=== PATIENT | female | born 1980 | race Caucasian/White ===

== ENCOUNTER 2021-06-21 11:23 | Emergency (ER) | payer OTHER, SELFPAY ==
--- NOTE | ~2021-06-21 | XR_ITS ---
EXAMINATION: XR knee RT 3V EXAM DATE: 06/21/2021 11:47 INDICATION: Injured right knee pushing cart at work, posterior. TECHNIQUE: Three projections of the right knee. There is no prior study for comparison. FINDINGS: No evidence osteochondral defect or joint body in the right knee joint. There are no acut e fractures or dislocations identified. There is no subcutaneous gas. There is small joint effusion . There are no radiopaque foreign bodies. IMPRESSION: 1. XR knee RT 3V exam without acute osseous findings. 2. Small joint effusion. Reviewed, dictated and finalized at location B. PROGRAMMER
--- NOTE | 2021-06-21 11:31 | ED.LOWEXIN ---
HPI - Extremity Injury (Lower) General Chief Complaint: Extremity Injury, Lower Stated Complaint: INJURED R KNEE Time Seen by Provider: 06/21/21 11:54 Source: patient and RN notes reviewed Mode of arrival: ambulatory Limitations: no limitations History of Present Illness HPI Narrative: 40-year-old female presents with concern for right knee pain. Reports yesterday she was pushing a heavy cart at work when she felt her knee twist and heard a crunching sound. Reports since then her knee has been painful and she continues to feel a crunching sensation. Reports she took a hot bath, used ice, ibuprofen and went to sleep. Reports symptoms persist this morning. Reports she is used ice this morning. Reports posterior pain and anterior pain. She denies any open skin, redness, warmth. MD complaint: knee injury Related Data Allergies Allergy/AdvReac Type Severity Reaction Status Date / Time Penicillins Allergy Unknown Verified 06/21/21 11:34 tetanus and diphtheria Allergy Unknown Verified 06/21/21 11:34 toxoids Review of Systems Review of Systems: CONSTITUTIONAL: Denies malaise, chills, sweats, or fever. SKIN: Denies rash or itching, open skin, laceration, abrasion, redness, warmth, swelling. MUSCULOSKELETAL: Reports right knee pain NEUROLOGIC: Denies numbness, weakness All systems reviewed & are unremarkable except as noted in HPI and below PMFSH Comments At time of signature, agree with nursing past medical, surgical, social and family history. There is no relevant family history pertinent to the presenting complaint Exam Narrative: GENERAL: Well-appearing, well-nourished, and in no acute distress. HEAD: Normocephalic, atraumatic. EYES: PERRLA, conjunctivae clear NECK: Supple. CHEST: Speaks in full sentences. No respiratory distress. HEART: Regular rate and rhythm. Normal and equal peripheral pulses. EXTREMITIES: Right knee has normal sensation, grossly normal range of motion. No edema or ecchymosis. Normal sensation with sensitivity to light touch and pain. Anterior and posterior tenderness. No open wounds, no skin tenting, no devitalized tissue or atrophy, no trophic changes, no obvious deformity, alignment normal, nearby joints and structures intact. Distal pulses palpable and equal bilaterally, skin warm, dry, pink. Capillary refill less than 3 seconds. SKIN: Warm, dry, no rash. NEURO: Alert and oriented x3. PSYCH: Normal mood and affect Course Course Emergency Course: Patient is aware of diagnosis, understands and agrees to treatment plan. Anticipatory guidance given. Patient agrees to follow-up as directed and is aware of reasons to seek care at the emergency department. Portions of this record may have been created with voice recognition software Level of Care: Express Care Visit Vital Signs Vital signs: Reviewed. MDM - Extremity Injury (Lower) MDM Narrative Medical decision making narrative: Patients injury and pain is consistent with musculoskeletal etiology. No signs of neurological or vascular compromise on exam. Compartments and tissues are soft without signs of compartment syndrome. Pain is felt appropriate for further evaluation on an outpatient basis. Imaging Data My impression: Images reviewed, interpreted by radiologist, agree, see report. Radiologist's impression: EXAMINATION: XR knee RT 3V EXAM DATE: 06/21/2021 11:47 INDICATION: Injured right knee pushing cart at work, posterior. TECHNIQUE: Three projections of the right knee. There is no prior study for comparison. FINDINGS: No evidence osteochondral defect or joint body in the right knee joint. There are no acute fractures or dislocations identified. There is no subcutaneous gas. There is small joint effusion. There are no radiopaque foreign bodies. IMPRESSION: 1. XR knee RT 3V exam without acute osseous findings. 2. Small joint effusion. Critical Care Time Critical Care Time Critical Care Time: No Discharge Plan Discha
[2021-06-21 11:48] VITALS: BP 120/81; PULSE 75; RESP 18; TEMP 36.3; O2SAT 99
== END 2021-06-21 12:14 | disposition home or self-care (01) ==
PROVIDERS: Emergency Provider Nurse Practitioner
DX: M25.461 Effusion, right knee (principal)
CPT/HCPCS: 73562; 99213; G0463

== ENCOUNTER 2021-07-31 12:51 | Outpatient (CLI) | payer OTHER, SELFPAY ==
--- NOTE | ~2021-07-31 | XR_ITS ---
XR knee RT min 4V 07/31/2021 13:07 Indication: Right knee pain Procedure: 4 views right knee Comparison: 06/21/2021 Findings: There is mild osteoarthritis of the right knee. No fracture, subluxation or dislocation. No significant joint effusion. No focal soft tissue abnormality. No foreign bodies. Impression: 1: Mild osteoarthritis of the right knee. Reviewed, dictated and finalized at location A. Impression: 1: Mild osteoarthritis of the right knee.
== END 2021-07-31 12:52 | disposition home or self-care (01) ==
PROVIDERS: Visit Provider Orthopaedic Surgery
DX: M17.11 Unilateral primary osteoarthritis, right knee (principal)
CPT/HCPCS: 73564

== ENCOUNTER 2021-08-11 10:29 | Outpatient (CLI) | payer OTHER, SELFPAY ==
--- NOTE | ~2021-08-11 | MR_ITS ---
EXAMINATION: MR knee RT wo con DATE: 08/11/2021 11:23 INDICATION: Other tear of medial meniscus, current injury. Posterior pain and swelling. TECHNIQUE: Magnetic resonance imaging (MRI) of the right knee was performed without intravenous contr ast. Sequences included axial PD-weighted FS FSE, coronal PD-weighted FSE and PD-weighted FS FSE, sag ittal PD-weighted FSE, and sagittal T2-weighted FS FSE. COMPARISON: Right knee radiographs 07/31/2021 FINDINGS: Medial compartment: There is a complex tear involving anterior horn, body, and posterior horn of medial meniscus. There i s shallow partial-thickness cartilage loss of tibial condyle and femoral condyle. There is mild subch ondral edema-like marrow signal intensity of tibial condyle at the central articular surface. Osteoph ytes are noted. Lateral compartment: Lateral meniscus is normal. There is cartilage surface irregularity of tibial condyle and femoral con dyle. There are tiny marginal osteophytes. Patellofemoral compartment: There is deep partial thickness cartilage loss of patellar medial and lateral facets. Trochlear carti heidi is normal. Ligaments and tendons: There is thickening and increased signal involving anterior cruciate ligament, consistent with mucoid degeneration. There is increased signal and posterior cruciate ligament, consistent mucoid degenerat ion. Medial collateral ligament and lateral collateral ligament complex are normal. There is mild pat ellar tendinopathy. Fluid: There is a small knee joint effusion. IMPRESSION: 1. Moderate chondrosis of patellofemoral compartment and mild chondrosis of medial and lateral compar tments. 2. Complex tear of medial meniscus. 3. Small knee joint effusion. Reviewed, dictated and finalized at location A. IMPRESSION: 1. Moderate chondrosis of patellofemoral compartment and mild chondrosis of med ial and lateral compartments. 2. Complex tear of medial meniscus. 3. Small knee joint effusion.
== END 2021-08-11 10:30 | disposition home or self-care (01) ==
PROVIDERS: Visit Provider Orthopaedic Surgery
DX: M25.461 Effusion, right knee (principal); S83.231D Complex tear of medial meniscus, current injury, right knee, subsequent encounter; X58.XXXD Exposure to other specified factors, subsequent encounter
CPT/HCPCS: 73721

== ENCOUNTER 2022-01-11 01:42 | Day surgery (SDC) | payer OTHER, SELFPAY ==
[2022-01-02 13:41] VITALS: BMI 40.3
--- NOTE | 2022-01-02 13:42 | PC.NURSE ---
Report to the Outpatient Waiting Room, entrance under the green pavilion located off [facility], at time _0600_ on date _01/11/22_. OR Time: _0730_. - You and your visitor will be asked to self-screen and do not enter if you have any COVID symptoms. - Only one visitor and NO children visitors are allowed at this time. - The patient visitor is requested to leave or wait in car when not with patient due to restrictions. - A mask is required within the hospital. Patients may have clear liquids (water, carbonated beverages, clear teas, apple juice) until 3 hours prior to surgery with a maximum of 20 ounces. - No food from midnight until time of surgery - Infants may have breast milk until 4 hours before surgery, infant formula 6 hours prior to surgery. - Children will be allowed to drink immediately following surgery. If applicable, please bring a bottle or sippy cup to assist with drinking. Juice, water, soda, and popsicles are readily available. For infants on formula, please bring formula the day of surgery. Pacifiers are allowed. Take the following medications with a SIP of water the morning of surgery: __Nexium if needed__ Medications to discontinue per physician __stop vitamins or supplements 3 days before surgery date____ Date to take last dose Please no make-up, nail mohawk, hairspray, perfume, deodorant, or body powder the day of surgery. No jewelry (including any body piercings) or valuables the day of surgery, leave them at home. Please take a shower or bath the night before, or the morning of, surgery with an antibacterial soap. Wear comfortable, loose fitting clothing. Children are encouraged to wear pajamas. - Jewelry must be removed prior to entering the operating room. Rings and piercings that are not removed may be cut off. - The hospital will not accept responsibility for valuables. - Please leave all valuables, including medications, at home the day of surgery. If you are going home after surgery, a licensed winch driver must drive you home. - NO public transportation without another adult. - We recommend that an adult stay with you for 24 hours following discharge. - We also recommend that you do not drive, make important decision, drink alcoholic beverages, or take any drugs that were not prescribed by your health care provider for at least 24 hours after your discharge time. For Pediatric surgeries, we recommend two adults accompany the child home (only one inside the building at this time). Follow any additional instructions given to you from your surgeon. If you or anyone in your household have experienced Covid symptoms in the past week, please notify your surgeon or the nurse liaison at the phone number below for possible testing. Telephone instructions given to _Pateint__and asked if any additional questions and then verbalized understanding. Patient advised to call surgeon office or pre surgery nurse liaison [phone] if any additional questions.
[2022-01-11] VITALS (10 sets, daily range): BP systolic 110–134; BP diastolic 73–84; PULSE 50–89; RESP 12–18; TEMP 36.2–36.7; O2SAT 95–100; BMI 42.6
--- NOTE | 2022-01-11 07:13 | WPDHPUPDATE1 ---
History and Physical Update Update Date/Time: 01/11/22 07:13 History and Physical has been reviewed, including an updated exam of the patient. There are NO changes in the patient's condition. Risks, benefits, and alternatives have been discussed and questions answered. Patient agrees to proceed with procedure.
--- NOTE | 2022-01-11 07:45 | SUR.PREOP ---
0745- Patient verbalized understanding of crutch use and declined crutch instructions at this time.
--- NOTE | 2022-01-11 08:23 | WPDANESEPPF ---
Anes - Initial Pre Proc Eval Procedure: Operation Date: 01/11/22 09:30 Proposed Procedures p Right Knee Arthroscopy, Debride Meniscus, Synovectomy, Chondroplasty, Proceed As Indicated - Rowdy Gongora MD Date/Time: 01/11/22 08:23 Surgeon: Rowdy Gongora MD Pre Op Diagnosis: right knee pain, meniscus tear,chondromalcia,synov Patient Data Age: 41 Gender: F Height: 1.63 m Weight: 112.7 kg Last Vital Signs Temp 36.7 C 01/11/22 07:45 Pulse 77 01/11/22 07:45 Resp 14 01/11/22 07:45 BP 125/74 01/11/22 07:45 Pulse Ox 100 01/11/22 07:45 O2 Del Method Room Air 01/11/22 07:45 Allergies Allergy/AdvReac Type Severity Reaction Status Date / Time cromolyn [From Intal] Allergy Severe Swelling Verified 01/11/22 08:08 of Lip/Tongue/Throat Penicillins Allergy Severe Anaphylactic Verified 01/11/22 08:08 Shock tetanus and diphtheria Allergy Intermediate Anaphylactic Verified 01/11/22 08:08 toxoids Shock codeine AdvReac Intermediate Itching Verified 01/11/22 08:08 Home Medications Medication Instructions Recorded Confirmed Type esomeprazole magnesium 20 mg 20 mg PO DAILY 08/01/21 01/03/22 History capsule,delayed release Patient hx anesthesia problems: post op nausea/vomiting Family hx anesthesia problems: none Results Review: All pre-operative results and documents have been reviewed as part of the pre-operative evaluation. [facility] Past Medical History Medical History Acute medial meniscus tear of right knee Anxiety Asthma Depression JULIANNA (obstructive sleep apnea) Sleep disorder Surgical History Surgical History H/O arthroscopic knee surgery approximately 1991 per patient questionnaire Family History Family History Other Arthritis Asthma Depression Diabetes mellitus Social History Social History Years smoked: 0.5 Smoking status: Current every day smoker Tobacco type: e-cigarettes/vaping Alcohol intake: current Drinks per week: 2 Alcohol use details: pt stated 0-5 a week Substance use: never Substance use type: does not use Living arrangements: alone 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 Gender identity (if verbalized by the patient): Female Spiritual care concerns: No Anes - Eval Final PreProcedure Day of Procedure 01/11/22 08:23 Patient weight: morbidly obese Heart: regular rate and rhythm Lungs: clear to auscultation Airway: Mallampati scale class II Neurological: alert and oriented Last oral intake: >/= 8 hours ASA classification: III Emergent: no Anesthetic plan: proceed Anesthesia type and monitoring: general LMA and standard monitoring Results Review: All pre-operative results and documents have been reviewed as part of the pre-operative evaluation. Informed Consent: The patient's anesthetic plan and its attendant risks and benefits were discussed with the patient/family/POA. Questions were solicited and answers provided to the satisfaction of the patient/family/POA.
[2022-01-11] MEDS: ACETAMINOPHEN 500 MG TABLET 1000 MG PO (08:48)
[2022-01-11] MEDS: LACTATED RINGERS 1,000 ML 30 ML IV CONT ×2 (09:00→11:56)
[2022-01-11] MEDS: KETOROLAC 15 MG/ML VIAL (*BKC) IV PUSH (09:09)
[2022-01-11] MEDS: SCOPOLAMINE 1.5 MG PATCH TRANSDERM (09:10)
[2022-01-11] MEDS: ceFAZolin 2 GM/D5W 50 ML 2 GM/50 ML BAG IVPB (09:49)
[2022-01-11] MEDS: BUPIVACAINE/EPINEPHRINE 0.25% 50 ML VIAL 10 ML INFILTRATE (10:27)
[2022-01-11] MEDS: BUPIVACAINE HCL 0.25% PF 30 ML VIAL INFILTRATE (10:28)
--- NOTE | 2022-01-11 11:16 | P.OP_ITS ---
Procedure Note - Detailed Date of Procedure 01/11/22 Pre-op Diagnosis right knee pain, meniscus tear,chondromalcia,synov Post-op Diagnosis Same Procedure Performed Right knee arthroscopy, partial medial meniscectomy, chondroplasty and syn ovectomy. Surgeon Rowdy Gongora MD Anesthesia General Indications 41-year-old woman who injured her right knee at work. Workup including MRI reveals medial meniscus tear, synovectomy and chondromalacia. Patient has failed conservative treatment and presents now for operative treatment. Findings Right knee with posterior horn complex medial meniscus tear extending to the posterior root, ACL and PCL intact, extensive synovitis and hypertrophic fat pad anteriorly, intact lateral meniscus and lateral compartment, grade 2 chondromalacia patella articular surface, grade 2 chondromalacia medial femoral condyle. Description of Procedure Informed consent given by patient. Operative extremity marked in preoperative holding area. Patient received intravenous antibiotics. Patient brought to operating room and underwent general anesthetic by anesthesia team. Positioned supine on operating room table. Right leg placed into a posterior thigh leg galarza. Foot of the table dropped to 90? and Left leg padded out of the field. Time-out performed confirming patient, site of surgery and plan. Right knee prepped and draped in usual sterile surgical fashion using ChloraPrep skin solution. Standard arthroscopic portals made by using a 11 blade knife for the anterior-lateral portal 1st. Capsule penetrated bluntly. Camera and inflow started. The operative findings noted. Intra-articular visualization used to position the anterior medial portal using 22 gauge spinal needle. A 11 blade knife used for the skin and blunt penetration of the capsule. 4.7 millimeter a rthroscopic shaver introduced and partial medial meniscectomy of the loose and torn portion performed. Edge of meniscus completed with arthroscopic Wand. Arthroscopic Wand used to perform chondroplasty of the patellofemoral articulation and the medial femoral condyle. Shaver reintroduced and a synovectomy performed of the anterior fat pad and extensive synovium as well as medial and lateral plica. Bleeding points coagulated with Wand. Knee inspected, no loose pieces noted. 1 liter of irrigant infused and suction out. Arthroscopic cannulas removed. Skin closed with 4 nylon interrupted suture. Local anesthetic with 0.25% Marcaine. Sterile dressing applied. Patient awoken from anesthesia, extubated and taken to recovery room in stable condition. All sponge needle and instrument counts correct at the end of the case. Estimated Blood Loss -20.0 Tourniquet Time 0 Drains No Packing No Pathology None sent Complications None Condition Stable Disposition PACU
[2022-01-11] MEDS: fentaNYL CITRATE INJ (*CRX) 100 MCG/2 ML VIAL 25 MCG IV PUSH ×2 (11:35→11:38)
[2022-01-11] MEDS: ONDANSETRON INJ 4 MG/2 ML VIAL IV PUSH (12:00)
[2022-01-11] MEDS: oxyCODONE HCL (*CRX) 5 MG TAB IR PO (12:25)
== END 2022-01-11 13:23 | disposition home or self-care (01) ==
PROVIDERS: Visit Provider Orthopaedic Surgery
PROC: (CPT 29870; principal; 2022-01-11 09:30)
DX: S83.231A Complex tear of medial meniscus, current injury, right knee, initial encounter (principal); M65.861 Other synovitis and tenosynovitis, right lower leg; M94.261 Chondromalacia, right knee; X50.0XXA Overexertion from strenuous movement or load, initial encounter; G47.33 Obstructive sleep apnea (adult) (pediatric); F17.290 Nicotine dependence, other tobacco product, uncomplicated; E66.01 Morbid (severe) obesity due to excess calories; Z68.41 Body mass index [BMI] 40.0-44.9, adult
CPT/HCPCS: 29881; A9270; J0690; J1100; J1170; J1885; J2250; J2405; J2704; J3010; J7120

== ENCOUNTER 2022-09-20 18:53 | Emergency (ER) | payer OTHER, SELFPAY ==
[2022-09-20 19:00] VITALS: BP 128/76; PULSE 89; RESP 20; TEMP 36.6; O2SAT 100
--- NOTE | 2022-09-20 19:02 | ED.URI ---
HPI - URI/Sore Throat General Chief Complaint: Upper Respiratory Infection Stated Complaint: cold / flu Time Seen by Provider: 09/20/22 19:02 Source: patient and RN notes reviewed History of Present Illness HPI Narrative: Patient is a 41-year-old female who presents to urgent care with complaints of upset stomach with nausea and vomiting that has since resolved. Patient states that her symptoms started on Saturday and she feels much better today however her work is requiring a return to work note. Patient states she also had some low-grade fevers. Patient currently denies any fever. States that she has not vomited over the last 24 hours. Patient states that she has ate and drink today without any issues. No other acute complaints. No acute distress noted. Patient aware of the plan of care. Some parts of this dictation were generated by voice recognition software and may contain typographical and/or grammatical inaccuracies. Related Data Allergies Allergy/AdvReac Type Severity Reaction Status Date / Time cromolyn [From Intal] Allergy Severe Swelling Verified 09/20/22 19:04 of Lip/Tongue/Throat Penicillins Allergy Severe Anaphylactic Verified 09/20/22 19:04 Shock tetanus and diphtheria Allergy Severe Anaphylactic Verified 09/20/22 19:04 toxoids Shock codeine AdvReac Intermediate Itching Verified 09/20/22 19:04 Review of Systems Review of Systems: CONSTITUTIONAL: Denies fever, chills, or sweats. EYES: Denies visual changes, redness, or discharge. ENT: Denies rhinorrhea, congestion, sore throat, or otalgia. CARDIOVASCULAR: Denies chest pain, palpitations, or edema. RESPIRATORY: Denies cough or dyspnea. GASTROINTESTINAL: Reports of some loose stools today without nausea, vomiting or abdominal discomfort GENITOURINARY: Denies dysuria or hematuria. SKIN: Denies rash or itching. MUSCULOSKELETAL: Denies back pain, joint pain, or myalgia. NEUROLOGIC: Denies headache, numbness, or weakness. All other systems reviewed are negative, except as documented in HPI. [facility] Past Medical History Medical History Acute medial meniscus tear of right knee Anxiety Asthma Depression Iliotibial band syndrome affecting left lower leg JULIANNA (obstructive sleep apnea) Sleep disorder Surgical History Surgical History H/O arthroscopic knee surgery approximately 1991 per patient questionnaire S/P right knee arthroscopy Family History Family History Other Arthritis Asthma Depression Diabetes mellitus Social History Social History Years smoked: 0.5 Smoking status: Current every day smoker Tobacco type: e-cigarettes/vaping Alcohol intake: current Drinks per week: 2 Alcohol use details: pt stated 0-5 a week Substance use: never Substance use type: does not use Living arrangements: alone Occupation/Education: occupation 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 Gender identity (if verbalized by the patient): Female Spiritual care concerns: No Comments At the time of my signature, I reviewed and agree with the nursing past medical, surgical, social, and family history. There is no relevant family history pertinent to the patient complaint. Exam Narrative: GENERAL: This is a well-nourished, well-developed patient, in no apparent distress. HEAD: normocephalic, atraumatic. EYES: PERRL. Sclera clear/white. Vision is grossly intact. EARS: External ears normal, auditory canals clear and without drainage, TMs normal without perforation. Hearing grossly intact. NOSE: External nose normal with no obvious nasal discharge, nares without redness, no rhinorrhea. THROAT: Mucous membranes moist, posterior pharynx clear. Mild postnasal drainage NECK:
== END 2022-09-20 19:17 | disposition home or self-care (01) ==
PROVIDERS: Emergency Provider Nurse Practitioner Family
DX: R19.7 Diarrhea, unspecified (principal); F17.290 Nicotine dependence, other tobacco product, uncomplicated; J45.909 Unspecified asthma, uncomplicated
CPT/HCPCS: 99211; G0463

== ENCOUNTER 2022-11-26 12:35 | Outpatient (CLI) | payer OTHER, SELFPAY ==
--- NOTE | ~2022-11-26 | XR_ITS ---
XR knee RT min 4V DATE: 11/26/2022 12:46 INDICATION: Right knee pain. Patient fell one month ago. TECHNIQUE: 4 views COMPARISON: 01/23/2022 right knee FINDINGS: There is moderate loss of medial compartment joint space with periarticular spurring consis tent with medial compartment osteoarthritis. No fracture or dislocation or joint effusion, periosteal reaction or bone destruction, radiopaque int ra-articular loose body or chondrocalcinosis is detected. IMPRESSION: Medial compartment osteoarthritis Reviewed, dictated and finalized at location B.
== END 2022-11-26 12:36 | disposition home or self-care (01) ==
PROVIDERS: Visit Provider Orthopaedic Surgery
DX: M17.11 Unilateral primary osteoarthritis, right knee (principal)
CPT/HCPCS: 73564

== ENCOUNTER 2024-08-17 12:05 | Outpatient (CLI) | payer OTHER, SELFPAY ==
--- NOTE | ~2024-08-17 | XR_ITS ---
Left Knee Technique: AP, lateral, and sunrise views were obtained. Clinical History: Pain Findings: No fracture or dislocation is seen. Osseous alignment is anatomic. There is mild spurring a t the medial joint line.. Soft tissues are unremarkable. No joint effusion is seen. Impression: Mild degenerative change, as above. Reviewed, dictated and finalized at location M. Impression: Mild degenerative change, as above.
--- OUTSIDE RECORDS SUMMARY | 2024-08-17 13:51 | XMS_ITS | Clinical Summary ---
Author Organization [address] Address [address] [place] [address] Care Team Providers Care Specialty Department Supervisor Name Role Phone No, Physician Primary Care Provider [phone] Allergies Active Allergy Reactions Criticality Noted Date Comments Dpt-Haemophilus Ps(Tet.Conj.) Anaphylaxis High 06/16/2024 Penicillins Anaphylaxis High 06/16/2024 States she almost Medications albuterol HFA (PROVENTIL HFA,VENTOLIN HFA,PROAIR HFA) 90 mcg/actuation inhalerIndicati ons:Viral URI with cough Inhale 2 puffs every 4 (four) hours as needed for wheezing or shortness of breath 1 each 5 Active Active Problems No known active problems Encounters Date Type Department Care Team Description 06/22/2024 Telephone [facility] [place] [address] [place] [address] Serina Kumar NP 06/16/2024 12:02 PM STEWARD/STEWARDESS SMOKE ROOM - 06/16/2024 11:59 PM STEWARD/STEWARDESS SMOKE ROOM Hospital Encounter [facility] [address] [place] [address] Viral URI with cough Discharge Disposition: Discharge to home or self care 06/16/2024 10:00 AM STEWARD/STEWARDESS SMOKE ROOM Office Visit [facility] [place] [address] [place] [id number] Padmini Alas NP Viral URI with cough (Primary Dx) from Last 3 Months Social History Tobacco Use Types Packs/Day Years Used Date Smoking Tobacco: Never Assessed Comments Unknown Sex and Gender Information Value Date Recorded Sex Assigned at Not on file Legal Sex Female 6:19 PM STEWARD/STEWARDESS SMOKE ROOM Gender Identity Not on file Sexual Orientation Not on file Obstetrics History Last Filed Vital Signs Vital Sign Reading Time Taken Comments Blood Pressure 128/88 06/16/2024 10:03 AM STEWARD/STEWARDESS SMOKE ROOM Pulse 90 06/16/2024 10:03 AM STEWARD/STEWARDESS SMOKE ROOM Temperature 37.2 C (98.9 F) 06/16/2024 10:03 AM STEWARD/STEWARDESS SMOKE ROOM Respiratory Rate 19 06/16/2024 10:03 AM STEWARD/STEWARDESS SMOKE ROOM Oxygen Saturation 100% 06/16/2024 10:03 AM STEWARD/STEWARDESS SMOKE ROOM Inhaled Oxygen Concentration - - Weight 108.9 kg (240 lb) 06/16/2024 10:03 AM STEWARD/STEWARDESS SMOKE ROOM Height 162.6 cm (5' 4 ) 06/16/2024 10:03 AM STEWARD/STEWARDESS SMOKE ROOM Body Mass Index 41.2 06/16/2024 10:03 AM STEWARD/STEWARDESS SMOKE ROOM Plan of Treatment Health Maintenance Due Date Last Done Comments Breast Cancer Screening-Mammogram 1979 Cervical Cancer Screening 1979 Depression Screening 1979 Hepatitis C Screening 1979 DTaP/Tdap/Td Vaccine (1 - Tdap) 09/28/1990 Varicella Vaccines (1 of 2 - 13+ 2-dose series) 09/28/1992 Hepatitis B Screening 09/28/1997 Regular Well Visit/Exam 18-64 09/28/1997 Influenza Vaccine (#1) 2024 HPV Vaccines Aged Out No longer eligi ble based on patient's age to complete this topic Pneumococcal vaccine <65 Aged Out No longer eligible based on patient's age to complete this topic Procedures Procedure Name Priority Date/Time Associated Diagnosis Comments XR CHEST PA LATERAL 2 VIEWS Schedule FARHAN, Read FARHAN (Appt Today, Awaiting Results) 06/16/2024 12:19 PM STEWARD/STEWARDESS SMOKE ROOM Viral URI with cough POCT HCG, URINE Routine 06/16/2024 11:20 AM STEWARD/STEWARDESS SMOKE ROOM Viral URI with cough POCT RAPID STREP Routine 06/16/2024 10:2 6 AM STEWARD/STEWARDESS SMOKE ROOM Viral URI with cough POC INFLUENZA A/B, COVID-19 ANTIGEN Routine 06/16/2024 10:26 AM STEWARD/STEWARDESS SMOKE ROOM Viral URI with cough from Last 3 Months Results * XR Chest Pa Lateral 2 Views (06/16/2024 12:19 PM STEWARD/STEWARDESS SMOKE ROOM) Anatomical Region Laterality Modality Body, Chest N/A Computed Radiogr aphy 06/16/2024 2:26 PM STEWARD/STEWARDESS SMOKE ROOM Narrative 06/16/2024 2:28 PM STEWARD/STEWARDESS SMOKE ROOM EXAM DESCRIPTION: XR CHEST PA LATERAL 2 VIEWS REASON FOR STUDY: cough, fever, and sob x2 days. H/o of asthma. Rule out pneumonia. Complaints of cough/congestion/SOB/CP x 2-3 days. Former smoker. Hx of asthma. No prior injuries/surgery to heart/lungs. TECHNIQUE: There are 2 radiographic view(s) of the chest. COMPARISON: No prior. FINDINGS: LUNGS: Pulmonary vascularity appears normal. No confluent infiltrate or effusion. Costophrenic angles are sharp. HEART/MEDIASTINUM: Cardiac silhouette normal in size. Mediastinal and hilar contours appear normal. LINES/TUBES: None. BONES: Moderate spondylosis thoracic spine. IMPRESSION: No acute cardiopulmonary abnormality. No infiltrate. THIS IS AN ELECTRONICALLY VERIFIED FINAL REPORT 06/16/2024 2:28 PM - Electronically signed by Jose Martin Torres M.D. MJ: ROLANDO Report ID: [id number] Reading Location: [id number] Procedure Note Jose Martin Torres MD - 06/16/2024 EXAM DESCRIPTION: XR CHEST PA LATERAL 2 VIEWS REASON FOR STUDY: cough, fever, and sob x2 days. H/o of asthma. Rule out pneumonia. Complaints of cough/congestion/SOB/CP x 2-3 days. Former smoker. Hx of asthma. No prior injuries/surgery to heart/lungs. TECHNIQUE: There are 2 radiographic view(s) of the chest. COMPARISON: No prior. FINDINGS: LUNGS: Pulmonary vascularity appears normal. No confluent infiltrate or effusion. Costophrenic angles are sharp. HEART/MEDIASTINUM: Cardiac silhouette normal in size. Mediastinal andhilar contours appear normal. LINES/TUBES: None. BONES: Moderate spondylosis thoracic spine. IMPRESSION: No acute cardiopulmonary abnormality. No infiltrate. THIS IS AN ELECTRONICALLY VERIFIED FINAL REPORT 06/16/2024 2:28 PM - Electronically signed by Jose Martin Torres M.D. MJ: ROLANDO Report ID: [id number] Reading Location: [place] [address] Padmini Alas BABCOCK TESTER IMG XR PROCEDURES Final Result * POCT hCG, urine (06/16/2024 11:20 AM STEWARD/STEWARDESS SMOKE ROOM) [facility] HCG, ur, POC Negative Negative Lot Number [id number] QC Backgroud Clear Acceptable QC Control Line Acceptable Urine 06/16/2024 11:2 0 AM STEWARD/STEWARDESS SMOKE ROOM Padmini Alas POINT OF CARE TEST ORDERABLES Fi nal Result * POC Influenza A/B, COVID-19 antigen (06/16/2024 10:26 AM STEWARD/STEWARDESS SMOKE ROOM) [facility] Influenza A Ag, POC Negative Negative [facility] Influenza B Ag, POC Negative Negative [facility] COVID-19 Ag POC Presumptive Negative Presumptive Negative, Invalid [facility] Nasal 06/16/2024 10:2 6 AM STEWARD/STEWARDESS SMOKE ROOM [facility] POINT OF CARE TEST ORDERABLES Fi nal Result [facility] [address] [place] [address], [facility] * POCT rapid strep A (06/16/2024 10:26 AM STEWARD/STEWARDESS SMOKE ROOM) [facility] Rapid Strep A, POC Negative Negative Swab 06/16/2024 10:2 6 AM STEWARD/STEWARDESS SMOKE ROOM Padmini Pachecoen [employer]ABCOCK TESTER POINT OF CARE TEST ORDERABLES Fi nal Result from Last 3 Months [facility] Care Teams Specialty Department Supervisor Relationship Specialty Start Date End Date No, Physician PCP - General 06/15/24
--- OUTSIDE RECORDS SUMMARY | 2024-08-17 13:51 | XMS_ITS | Referral Summary ---
Author Organization [address] Address [address] [place] [address] Care Team Providers Care Material Movers Name Role Phone No, Physician Primary Care Provider [phone] Encounters Date Type Department Care Team Description 06/22/2024 Telephone [facility] [address] [place] [address] Serina Kumar NP 06/16/2024 12:02 PM AUTOMOTIVE PROFESSIONAL - 06/16/2024 11:59 PM AUTOMOTIVE PROFESSIONAL Hospital Encounter [facility] 1 [place] [address] Viral URI with cough Discharge Disposition: Discharge to home or self care 06/16/2024 10:00 AM AUTOMOTIVE PROFESSIONAL Office Visit [facility] [address] [place] [address] Padmini Alas NP Viral URI with cough (Primary Dx) from Last 3 Months Allergies Active Allergy Reactions Criticality Noted Date Comments Dpt-Haemophilus Ps(Tet.Conj.) Anaphylaxis High 06/16/2024 Penicillins Anaphylaxis High 06/16/2024 States she almost Medications albuterol HFA (PROVENTIL HFA,VENTOLIN HFA,PROAIR HFA) 90 mcg/actuation inhalerIndicati ons:Viral URI with cough Inhale 2 puffs every 4 (four) hours as needed for wheezing or shortness of breath 1 each Active Active Problems No known active problems Social History Tobacco Use Types Packs/Day Years Used Date Smoking Tobacco: Never Assessed Comments Unknown Sex and Gender Information Value Date Recorded Sex Assigned at Not on file Legal Sex Female 6:19 PM AUTOMOTIVE PROFESSIONAL Gender Identity Not on file Sexual Orientation Not on file Last Filed Vital Signs Vital Sign Reading Time Taken Comments Blood Pressure 128/88 06/16/2024 10:03 AM AUTOMOTIVE PROFESSIONAL Pulse 90 06/16/2024 10:03 AM AUTOMOTIVE PROFESSIONAL Temperature 37.2 C (98.9 F) 06/16/2024 10:03 AM AUTOMOTIVE PROFESSIONAL Respiratory Rate 19 06/16/2024 10:03 AM AUTOMOTIVE PROFESSIONAL Oxygen Saturation 100% 06/16/2024 10:03 AM AUTOMOTIVE PROFESSIONAL Inhaled Oxygen Concentration - - Weight 108.9 kg (240 lb) 06/16/2024 10:03 AM AUTOMOTIVE PROFESSIONAL Height 162.6 cm (5' 4 ) 06/16/2024 10:03 AM AUTOMOTIVE PROFESSIONAL Body Mass Index 41.2 06/16/2024 10:03 AM AUTOMOTIVE PROFESSIONAL Plan of Treatment Not on file Procedures Procedure Name Priority Date/Time Associated Diagnosis Comments XR CHEST PA LATERAL 2 VIEWS Schedule FARHAN, Read FARHAN (Appt Today, Awaiting Results) 06/16/2024 12:19 PM AUTOMOTIVE PROFESSIONAL Viral URI with cough POCT HCG, URINE Routine 06/16/2024 11:20 AM AUTOMOTIVE PROFESSIONAL Viral URI with cough POCT RAPID STREP Routine 06/16/2024 10:2 6 AM AUTOMOTIVE PROFESSIONAL Viral URI with cough POC INFLUENZA A/B, COVID-19 ANTIGEN Routine 06/16/2024 10:26 AM AUTOMOTIVE PROFESSIONAL Viral URI with cough from Last 3 Months Results * XR Chest Pa Lateral 2 Views (06/16/2024 12:19 PM AUTOMOTIVE PROFESSIONAL) Anatomical Region Laterality Modality Body, Chest N/A Computed Radiogr aphy 06/16/2024 2:26 PM AUTOMOTIVE PROFESSIONAL Narrative 06/16/2024 2:28 PM AUTOMOTIVE PROFESSIONAL EXAM DESCRIPTION: XR CHEST PA LATERAL 2 [...] PM - Electronically signed by Jose Martin MARSHALL: ROLANDO Report ID: [id number] Reading Location: [place] [address] Procedure Note Jose Martin Torres MD - [...] PM - Electronically signed by Jose Martin MARSHALL: ROLANDO Report ID: [id number] Reading Location: [place] [address] [place] Padmini Alas NP IMG XR PROCEDURES Final Result * POCT hCG, urine (06/16/2024 11:20 AM AUTOMOTIVE PROFESSIONAL) HCG, ur, POC Negative Negative Lot Number [id number] QC Backgroud Clear Acceptable QC Control Line Acceptable Urine 06/16/2024 11:2 0 AM AUTOMOTIVE PROFESSIONAL Padmini Alas [facility] POINT OF CARE TEST ORDERABLES Fi nal Result * POC Influenza A/B, COVID-19 antigen (06/16/2024 10:26 AM AUTOMOTIVE PROFESSIONAL) Influenza A Ag, POC Negative Negative [facility] Influenza B Ag, POC Negative Negative [facility] COVID-19 Ag POC Presumptive Negative Presumptive Negative, Invalid [facility] Nasal 06/16/2024 10:2 6 AM AUTOMOTIVE PROFESSIONAL Padmini Alas POINT OF CARE TEST ORDERABLES Fi nal Result Performing Organization Address City/State/[facility] Co de Phone Number [facility] [address] [place] [address], [facility] * POCT rapid strep A (06/16/2024 10:26 AM AUTOMOTIVE PROFESSIONAL) Pathologist [facility] Rapid Strep A, POC Negative Negative Swab 06/16/2024 10:2 6 AM AUTOMOTIVE PROFESSIONAL Padmini Alas [facility] POINT OF CARE TEST ORDERABLES Fi nal Result from Last 3 Months Insurance [facility] PPO Care Teams Material Movers Relationship Specialty Start Date End Date No, Physician PCP - General 06/15/24
== END 2024-08-17 12:06 | disposition home or self-care (01) ==
PROVIDERS: Visit Provider Orthopaedic Surgery
DX: M17.12 Unilateral primary osteoarthritis, left knee (principal)
CPT/HCPCS: 73564

== ENCOUNTER 2024-08-29 11:29 | Outpatient (CLI) | payer OTHER, SELFPAY ==
--- NOTE | ~2024-08-29 | MR_ITS ---
MRI of the left knee Clinical history: Medial meniscal tear Technique: Coronal proton density and proton density-weighted images, sagittal proton-density and T2 fat-sat images, and axial proton-density fat-saturated images were acquired. Findings: Anterior and posterior cruciate ligaments are intact. Medial collateral ligament and the la teral collateral ligament complex are intact. Popliteus tendon is intact. There is complex tearing of the posterior horn and body of medial meniscus. Lateral meniscus is intac t. There is patchy mild to moderate chondromalacia the medial compartment. Articular cartilage in the la teral and patellofemoral compartments is well preserved. Bone marrow signals are unremarkable. Small joint effusion present. No Monzon's cyst. Impression: Complex tearing of the posterior horn and body of medial meniscus. 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 Small joint effusion. Reviewed, dictated and finalized at [facility]. Impression: Complex tearing of the posterior horn and body of medial meniscus. 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 Small joint effusion.
== END 2024-08-29 11:30 | disposition home or self-care (01) ==
PROVIDERS: PCP Orthopaedic Surgery; Visit Provider Orthopaedic Surgery
DX: S83.232A Complex tear of medial meniscus, current injury, left knee, initial encounter (principal); M94.262 Chondromalacia, left knee; M25.462 Effusion, left knee; X58.XXXA Exposure to other specified factors, initial encounter
CPT/HCPCS: 73721

== ENCOUNTER 2024-12-15 14:44 | Outpatient (CLI) | payer OTHER, SELFPAY ==
--- OUTSIDE RECORDS SUMMARY | 2024-12-15 14:50 | XMS_ITS | Referral Summary ---
Author Organization [facility] [address] [facility] [facility] Address [address] [place] [address] Care Team Providers Care Pickling Drum Operator Name Role Phone No, Physician Primary Care Provider [phone] Encounters Date Type Department Care Team Description 10/06/2024 Telephone [facility] [address] [place] [address] Jazmyn Colbert NP from Last 3 Months Allergies Active Allergy [...] on file Legal Sex Female 6:19 PM FURNITURE SANDER Gender Identity Not on file Sexual Orientation Not on file Last Filed Vital Signs Vital Sign Reading Time Taken Comments Blood Pressure 128/88 06/16/2024 10:03 AM FURNITURE SANDER Pulse 90 06/16/2024 10:03 AM FURNITURE SANDER Temperature 37.2 C (98.9 F) 06/16/2024 10:03 AM FURNITURE SANDER Respiratory Rate 19 06/16/2024 10:03 AM FURNITURE SANDER Oxygen Saturation 100% 06/16/2024 10:03 AM FURNITURE SANDER Inhaled Oxygen Concentration - - Weight 108.9 kg (240 lb) 06/16/2024 10:03 AM FURNITURE SANDER Height 162.6 cm (5' 4) 06/16/2024 10:03 AM FURNITURE SANDER Body Mass Index 41.2 06/16/2024 10:03 AM FURNITURE SANDER Plan of Treatment Not on file Insurance [facility] Care Teams Pickling Drum Operator Relationship Specialty Start Date End Date No, Physician PCP - General 06/15/24
--- OUTSIDE RECORDS SUMMARY | 2024-12-15 14:50 | XMS_ITS | Clinical Summary ---
Author Organization [facility] [address] [facility] Address [address] [place] [address] Care Team Providers Care Business Attorney Name Role Phone No, Physician Primary Care Provider [phone] Allergies Active Allergy Reactions Criticality Noted Date [...] Care Team Description 10/06/2024 Telephone [facility] [address] [place] [address] Jazmyn Colbert NP from Last 3 Months Social History Tobacco Use Types Packs/Day Years Used Date Smoking Tobacco: Never Assessed Comments Unknown Sex and Gender Information Value Date Recorded Sex Assigned at Not on file Legal Sex Female 6:19 PM SHANK SORTER Gender Identity Not on file Sexual Orientation Not on file Obstetrics History Last Filed Vital Signs Vital Sign Reading Time Taken Comments Blood Pressure 128/88 06/16/2024 10:03 AM SHANK SORTER Pulse 90 06/16/2024 10:03 AM SHANK SORTER Temperature 37.2 C (98.9 F) 06/16/2024 10:03 AM SHANK SORTER Respiratory Rate 19 06/16/2024 10:03 AM SHANK SORTER Oxygen Saturation 100% 06/16/2024 10:03 AM SHANK SORTER Inhaled Oxygen Concentration - - Weight 108.9 kg (240 lb) 06/16/2024 10:03 AM SHANK SORTER Height 162.6 cm (5' 4) 06/16/2024 10:03 AM SHANK SORTER Body Mass Index 41.2 06/16/2024 10:03 AM SHANK SORTER Plan of Treatment Health Maintenance Due Date Last Done Comments Breast Cancer Screening-Mammogram 1979 Cervical Cancer Screening 1979 Colon Cancer Screening-Colonoscopy 1979 Depression Screening 1979 Hepatitis C Screening 1979 DTaP/Tdap/Td Vaccine (1 - Tdap) 09/28/1990 Varicella Vaccines (1 of 2 - 13+ 2-dose series) 09/28/1992 Hepatitis B Screening 09/28/1997 Regular Well Visit/Exam 18-64 09/28/1997 HPV Vaccines (1 - 3-dose SCD M series) 09/28/2006 Influenza Vaccine (#1) 2025 Pneumococcal vaccine <65 Aged Out No longer eligible based on patient's age to complete this topic Insurance [facility] PPO Care Teams Business Attorney Relationship Specialty Start Date End Date No, Physician PCP - General 06/15/24
[2024-12-15 19:12] LABS: Anion Gap 9 mmol/L (4-12); Blood Urea Nitrogen 13 mg/dL (7-17); Calcium 9.2 mg/dL (8.4-10.2); Carbon Dioxide 30 mmol/L (22-30); Chloride 102 mmol/L (98-107); Estimated Glomerular Filt Rate > 60; Glucose 129 mg/dL (65-110); Potassium 3.7 mmol/L (3.4-5.0); Sodium 141 mmol/L (137-145)
== END 2024-12-15 14:45 | disposition home or self-care (01) ==
PROVIDERS: Visit Provider Anesthesiology
DX: Z79.899 Other long term (current) drug therapy (principal)
CPT/HCPCS: 36415; 80048

== ENCOUNTER 2024-12-17 03:22 | Day surgery (SDC) | payer OTHER, MEDICAID, SELFPAY ==
[2024-12-15 09:56] VITALS: BMI 37.8
--- NOTE | 2024-12-15 10:05 | PC.NURSE ---
Report to the Outpatient Waiting Room, entrance under the green pavilion located off [facility], at time _0600_ on date _[id number]_. Planned Procedure Time: _0730_.? Time changes happen often and if your time is changed the preop area will call you the afternoon before. - You and your visitor will be asked to self-screen and do not enter if you have any COVID symptoms. Please call surgeon if you need to reschedule. - A mask is optional within the hospital at this time. Patients may have clear liquids (water, carbonated beverages, clear teas, apple juice) until 3 hours prior to surgery with a maximum of 20 ounces. - No food from midnight until time of surgery and no smoking, or chewing tobacco (or any form of nicotine). No chewing gum, candy or mints. Take only the following medications with a SIP of water on the morning of surgery: ___None____ DO NOT STOP ANY OF YOUR OTHER PRESCRIPTION MEDICATIONS PRIOR TO SURGERY EXCEPT THE FOLLOWING Hold all vitamins and supplements for 3 days per anesthesiologist. Medications to discontinue per physician ____Stop Ibuprofen now.____ Date to take last dose Please no make-up, nail pakistani, hairspray, perfume, deodorant, or body powder the day of surgery.? No jewelry (including any body piercings) or valuables the day of surgery, leave them at home.? Please take a shower or bath the night before, or the morning of, surgery with an antibacterial soap.? Wear comfortable, loose fitting clothing.? - Jewelry must be removed prior to entering the operating room.? Rings and piercings that are not removed may be cut off. - The hospital will not accept responsibility for valuables.? - Please leave all valuables, including medications, at home the day of surgery. If you are going home after surgery, a licensed belly dump driver must drive you home.? - NO public transportation without another adult if you receive anesthesia. - We recommend that an adult stay with you for 24 hours following discharge. - We also recommend that you do not drive, make important decision, drink alcoholic beverages, or take any drugs that were not prescribed by your health care provider for at least 24 hours after your discharge time. Follow any additional instructions given to you from your surgeon. Telephone instructions given to _Anamaria___and asked if any additional questions and then verbalized understanding. Patient advised to call surgeon office or pre surgery nurse liaison [phone] if any additional questions.
--- NOTE | 2024-12-16 13:29 | PM.IMHP ---
H&P: HPI History of Present Illness Date/Time: 12/16/24 13:29 Chief Complaint: Left knee pain Narrative: 44-year-old with left knee pain and catching, giving out. Worse with activity. Has failed treatment with physical therapy, home exercise, bracing and activity modification. Failed cortisone injections. MRI shows medial meniscus tear. Presents for operative treatment. Review of Systems Constitutional: Constitutional: Denies fever(s) Eyes: Eyes: Denies blurry vision ENT: Reports Normal hearing present Cardiovascular: Cardiovascular: Denies chest pain and Denies dyspnea Respiratory: Respiratory: Denies dyspnea and Denies wheezing Gastrointestinal: Gastrointestinal: Denies abdominal pain Genitourinary: Genitourinary: Denies urinary urgency Musculoskeletal: Musculoskeletal: Reports as per HPI and Denies numbness Integumentary/Breasts: Skin/Breast: Denies changing lesions and Denies sores Neurologic: Reports Normal hearing present, Denies behavioral changes, Denies confusion, Denies numbness and Denies convulsions Psychiatric: Psychiatric: Denies behavioral changes, Denies confusion and Denies hallucinations Endocrine: Endocrine: Denies heat intolerance Hematologic/Lymphatic: Hematologic/Lymphatic: Denies easy bleeding Allergic/Immunologic: Allergic/Immunologic: Denies wheezing PMFSH Past Medical History Medical History Acute medial meniscus tear of left knee Contusion of right patella Iliotibial band syndrome affecting left lower leg Sleep disorder Anxiety Depression JULIANNA (obstructive sleep apnea) Asthma Acute medial meniscus tear of right knee Surgical History Surgical History S/P right knee arthroscopy H/O arthroscopic knee surgery approximately 1991 per patient questionnaire Family History Family History Other Arthritis Asthma Depression Diabetes mellitus Social History Social History Years smoked: 2 Smoking status: Former smoker Tobacco type: cigarettes Smoking end date: 07/15/24 Alcohol intake: current Drinks per week: 2 Alcohol use details: pt stated 0-5 a week Substance use: never Substance use type: does not use Living arrangements: with family Occupation/Education: occupation 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 Gender identity (if verbalized by the patient): Female Spiritual care concerns: No Meds Home Medications and Allergies Home Medications ?Medication ?Instructions ?Recorded ?Confirmed ?Type ibuprofen 800 mg tablet 800 mg PO TID PRN pain #60 tabs 10/29/24 12/15/24 Rx furosemide 20 mg tablet (Lasix) 20 mg PO QAM #30 tabs 11/17/24 12/15/24 Rx tramadol 50 mg tablet 50 mg PO Q6H PRN pain #30 tabs 12/11/24 12/15/24 Rx esomeprazole magnesium 20 mg 20 mg PO DAILY 12/15/24 12/15/24 History capsule,delayed release (Nexium) Allergies Allergy/AdvReac Type Severity Reaction Status Date / Time cromolyn (From Intal) Allergy Severe Swelling Verified 12/15/24 09:53 of Lip/Tongue/Throat Penicillins Allergy Severe Anaphylactic Verified 12/15/24 09:53 Shock tetanus and diphtheria Allergy Severe Anaphylactic Verified 12/15/24 09:53 toxoids Shock codeine AdvReac Intermediate Itching Verified 12/15/24 09:53 Exam Const: General: healthy appearing; No in distress or confusion Orientation/consciousness: oriented to person, oriented to place, oriented to time and No confusion HENMT: Head: normal to inspection, normocephalic and atraumatic Eyes: Conjunctivae: conjunctivae normal Sclera: sclerae normal Neck: Neck: supple and nontender Resp: Effort & Inspection: normal respiratory effort and no audible wheezes Cardio: Rate: regular rate Rhythm: regular rhythm Skin: General skin exam: no rashes or lesions noted Neuro: General: oriented to person, oriented to place, oriented to time and No confusion Extrem: Right upper extremity: normal to inspection Left upper extremity: normal to inspection Right lower extremity: hip/thigh Details: normal ROM; no tenderness, knee Details: normal to inspection, normal ROM, knee ligament exam normal Details: anterior drawer test normal, posterior drawer test normal, valgus stress test normal, varus stress test normal and Mikayla?s test normal and Carol's Test Details: negative medially and laterally; no tenderness and no swelling and foot Details: normal capillary refill, toes with normal ROM, vascular exam Details: dorsalis pedis pulse present and motor-sensory exam Details: light-touch normal; no tenderness; no edema Left lower extremity: normal to inspection, normal capillary refill, hip/thigh Details: normal ROM; no tenderness, knee Details: tenderness Location: of the patella, of the medial joint line and of the infrapatellar area, swelling Location: of the infrapatellar area (mild), abnormal ROM (active extension -10, flexion 110), knee ligament exam normal Details: anterior drawer test normal, posterior drawer test normal, valgus stress test normal, varus stress test normal and Mikayla's test normal, Carol's Test Details: negative laterally and positive medially and crepitus Location: at the patella (mild) and foot Details: toes with normal ROM, vascular exam Details: dorsalis pedis pulse present and normal capillary refill and motor-sensory exam light-touch normal; no tenderness Psych: Affect: normal affect Assessment and Plan Assessment and plan (1) Acute medial meniscus tear of left knee: Qualifiers: Encounter type: initial encounter Qualified Code(s): S83.242A - Other tear of medial meniscus, current injury, left knee, initial encounter Code(s): S83.242A - Other tear of medial meniscus, current injury, left knee, initial encounter Status: Acute Assessment and Plan: Updated history, physical exam and radiographs reviewed with the patient. Interval changes reviewed. Continued pain with catching of the left knee. MRI shows posterior and body medial meniscus tear. Discussed the condition, nature, etiology and course of natural history with the patient. Treatment options including surgical and nonoperative treatment were reviewed. Risks and benefits of each as well as alternatives reviewed. The patient's questions were answered. She has failed conservative treatment with physical therapy and cortisone injections. Indicated for surgical treatment. Plan Discussed nonoperative and operative treatment options with the patient. Risks and benefits of each as well as alternatives were reviewed. All of the patient's questions were answered. The risks of surgery reviewed including but not limited to: Neurovascular damage, wound complication, infection, blood clot, pulmonary embolus, stroke, myocardial infarction, and anesthetic risks up to and including . Continued pain and possible dysfunction were explained. Specific risks of the procedure including later recurrence of deformity. No guarantees were offered. If hardware used, discussed risk of failure/ breakage and possible need for removal. If complications occur, the patient understands the need for further treatment, possible further surgery. Patient verbalizes understanding and wishes to proceed. PLAN: Left knee arthroscopy with debridement, partial meniscectomy, chondroplasty, synovectomy, proceed as indicated.
[2024-12-17] VITALS (10 sets, daily range): BP systolic 125–154; BP diastolic 78–91; PULSE 65–95; RESP 11–16; TEMP 36.1–36.6; O2SAT 95–100
--- OUTSIDE RECORDS SUMMARY | 2024-12-17 03:24 | XMS_ITS | Clinical Summary ---
Author Organization [facility] [place] [address] [facility] Address [address] [place] [address] Care Team Providers Care Mold Setter Name Role Phone No, Physician Primary Care Provider [phone] Allergies Active Allergy Reactions Criticality Noted Date [...] Team Description 10/06/2024 Telephone [facility] [address] [place] [address] Jazmyn Colbert NP from Last 3 Months Social History Tobacco Use Types Packs/Day Years Used Date Smoking Tobacco: Never Assessed Comments Unknown Sex and Gender Information Value Date Recorded Sex Assigned at Not on file 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 Gender Identity Not on file Sexual Orientation Not on file Obstetrics History Last Filed Vital Signs Vital Sign Reading Time Taken Comments Blood Pressure 128/88 06/16/2024 10:03 AM BUS ATTENDANT Pulse 90 06/16/2024 10:03 AM BUS ATTENDANT Temperature 37.2 C (98.9 F) 06/16/2024 10:03 AM BUS ATTENDANT Respiratory Rate 19 06/16/2024 10:03 AM BUS ATTENDANT Oxygen Saturation 100% 06/16/2024 10:03 AM BUS ATTENDANT Inhaled Oxygen Concentration - - Weight 108.9 kg (240 lb) 06/16/2024 10:03 AM BUS ATTENDANT Height 162.6 cm (5' 4) 06/16/2024 10:03 AM BUS ATTENDANT Body Mass Index 41.2 06/16/2024 10:03 AM BUS ATTENDANT Plan of Treatment Health Maintenance Due Date [...] age to complete this topic Insurance [facility] PPO Care Teams Mold Setter Relationship Specialty Start Date End Date No, Physician PCP - General 06/15/24
--- NOTE | 2024-12-17 06:34 | WPDHPUPDATE1 ---
History and Physical Update Update Date/Time: 12/17/24 06:34 History and Physical has been reviewed, including an updated exam of the patient. There are NO changes in the patient's condition. Risks, benefits, and alternatives have been discussed and questions answered. Patient agrees to proceed with procedure.
[2024-12-17] MEDS: KETOROLAC 15 MG/ML VIAL (*BKC) IV PUSH (06:45)
[2024-12-17] MEDS: ACETAMINOPHEN 500 MG TABLET 1000 MG PO (06:45)
[2024-12-17] MEDS: LACTATED RINGERS 1,000 ML 30 ML IV CONT ×2 (07:00→08:34)
--- NOTE | 2024-12-17 07:00 | P.PNAN_ITS ---
Anes - Initial Pre Proc Eval Procedure: Operation Date: 12/17/24 07:30 Proposed Procedures p Left Knee Arthroscopy, Debride Meniscus, Synovectomy, Chondroplasty, Proceed As Indicated - Rowdy Gongora MD Date/Time: 12/17/24 07:00 Surgeon: Rowdy Gongora MD Pre Op Diagnosis: left knee pain, medial meniscus tear, chondromylac Patient Data Age: 44 Gender: F Height: 1.63 m Weight: 138 kg Allergies Allergy/AdvReac Type Severity Reaction Status Date / Time cromolyn (From Intal) Allergy Severe Swelling Verified 12/15/24 09:53 of Lip/Tongue/Throat Penicillins Allergy Severe Anaphylactic Verified 12/15/24 09:53 Shock tetanus and diphtheria Allergy Severe Anaphylactic Verified 12/15/24 09:53 toxoids Shock codeine AdvReac Intermediate Itching Verified 12/15/24 09:53 Home Medications ?Medication ?Instructions ?Recorded ?Confirmed ?Type ibuprofen 800 mg tablet 800 mg PO TID PRN pain #60 tabs 10/29/24 12/15/24 Rx furosemide 20 mg tablet (Lasix) 20 mg PO QAM #30 tabs 11/17/24 12/15/24 Rx tramadol 50 mg tablet 50 mg PO Q6H PRN pain #30 tabs 12/11/24 12/15/24 Rx esomeprazole magnesium 20 mg 20 mg PO DAILY 12/15/24 12/15/24 History capsule,delayed release (Nexium) Patient hx anesthesia problems: none Family hx anesthesia problems: none Results Review: All pre-operative results and documents have been reviewed as part of the pre-operative evaluation. [facility] Past Medical History Medical History Acute medial meniscus tear of left knee Contusion of right patella Iliotibial band syndrome affecting left lower leg Sleep disorder Anxiety Depression JULIANNA (obstructive sleep apnea) Asthma Acute medial meniscus tear of right knee Surgical History Surgical History S/P right knee arthroscopy H/O arthroscopic knee surgery approximately 1991 per patient questionnaire Family History Family History Other Arthritis Asthma Depression Diabetes mellitus Social History Social History Years smoked: 2 Smoking status: Former smoker Tobacco type: cigarettes Smoking end date: 07/15/24 Alcohol intake: current Drinks per week: 2 Alcohol use details: pt stated 0-5 a week Substance use: never Substance use type: does not use Living arrangements: with family Occupation/Education: occupation 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 Gender identity (if verbalized by the patient): Female Spiritual care concerns: No Anes - Eval Final PreProcedure Day of Procedure 12/17/24 07:00 Patient weight: super morbidly obese Heart: regular rate and rhythm Lungs: clear to auscultation Airway: Mallampati scale class II Neurological: alert and oriented Last oral intake: >/= 8 hours ASA classification: III Emergent: no Anesthetic plan: proceed Anesthesia type and monitoring: general LMA and standard monitoring Results Review: All pre-operative results and documents have been reviewed as part of the pre- operative evaluation. Informed Consent: The patient's anesthetic plan and its attendant risks and benefits were discussed with the patient/family/POA. Questions were solicited and answers provided to the satisfaction of the patient/family/POA.
[2024-12-17] MEDS: ceFAZolin 3 GM/D5W 100 ML 100 ML IVPB (07:24)
[2024-12-17] MEDS: BUPIVACAINE/EPINEPHRINE 0.5% 50 ML VIAL 10 ML INFILTRATE (07:55)
--- NOTE | 2024-12-17 08:17 | SUR.PREOP ---
PT HAS CRUTCHES; VERBALIZES PROFICIENCY OF USE
--- NOTE | 2024-12-17 08:42 | W.PM.PROC2 ---
Procedure Note - Detailed Date of Procedure 12/17/24 Pre-op Diagnosis left knee pain, medial meniscus tear, chondromylac Post-op Diagnosis Same Procedure Performed left knee arthroscopy with partial medial meniscectomy, extensive (major) synovectomy and chondroplasty of the patellofemoral and medial compartments. Surgeon Rowdy Gongora MD [employer] Binder Coverer Scrub Anesthesia General Indications 44 year old woman with left knee pain, catching and locking. MRI demonstrates medial meniscus tear, chondromalacia, synovitis. Has failed conservative treatment with therapy, cortisone injection, activity modification. Presents for operative treatment. Findings Complex tear of the posterior horn medial meniscus. Grade 3 chondromalacia patella articulation and grade 2 chondromalacia of the corresponding femoral trochlea. Grade 3 chondromalacia medial femoral condyle. Lateral meniscus and lateral compartment intact. ACL, PCL intact. Description of Procedure Informed consent given by patient. Operative extremity marked in preoperative holding area. Patient received intravenous antibiotics. Patient brought to operating room and underwent general anesthetic by anesthesia team. Positioned supine on operating room table. Left leg placed into a posterior thigh leg galarza. Foot of the table dropped to 90? and right leg padded out of the field. Time-out performed confirming patient, site of surgery and plan. Left knee prepped and draped in usual sterile surgical fashion using ChloraPrep skin solution. Standard arthroscopic portals made by using an 11 blade knife for the anterior lateral portal 1st. Capsule penetrated bluntly. Camera and inflow started. The above operative findings noted. Intra-articular visualization used to position the anterior medial portal using 22 gauge spinal needle. An 11 blade knife used for the skin and blunt penetration of the capsule. 4.7 millimeter arthroscopic shaver introduced and partial medial meniscectomy of the loose and torn portion performed. Edge of meniscus completed with arthroscopic Wand. Arthroscopic Wand used to perform chondroplasty of the patellofemoral articulation and the medial femoral condyle. There was extensive wear on the femoral trochlea through most of the trochlea. This was debrided with the arthroscopic Wand and the shaver and finished with the Wand. Shaver reintroduced and a synovectomy performed of the anterior fat pad and extensive synovium as well as medial and lateral plica and medial and lateral gutters. The loose hypertrophic synovium which was impinging in the patellofemoral space was excised. Bleeding points coagulated with Wand. Knee inspected, no loose pieces noted. 1 liter of irrigant infused and suctioned out. Arthroscopic cannulas removed. Skin closed with 4 O nylon interrupted suture. Local anesthetic with 0.25% Marcaine. Sterile dressing applied. Patient awoken from anesthesia, extubated and taken to recovery room in stable condition. All sponge needle and instrument counts correct at the end of the case. Implants None Estimated Blood Loss 5 Tourniquet Time Total Tourniquet Time: 0 Drains No Packing No Pathology None sent Complications None Condition Stable Disposition PACU [facility] Billing Surgery - Charge Forward: Surgery Billing ([id number], [id number])
[2024-12-17] MEDS: ONDANSETRON INJ 4 MG/2 ML VIAL IV PUSH (09:02)
[2024-12-17] MEDS: SCOPOLAMINE 1 MG PATCH 1 PATCH TRANSDERM (09:23)
== END 2024-12-17 11:04 | disposition home or self-care (01) ==
PROVIDERS: Visit Provider Orthopaedic Surgery
PROC: (CPT 29870; principal; 2024-12-17 07:30)
DX: S83.232A Complex tear of medial meniscus, current injury, left knee, initial encounter (principal); M94.262 Chondromalacia, left knee; M76.32 Iliotibial band syndrome, left leg; J45.909 Unspecified asthma, uncomplicated; G47.33 Obstructive sleep apnea (adult) (pediatric); F41.9 Anxiety disorder, unspecified; F32.A Depression, unspecified; X58.XXXA Exposure to other specified factors, initial encounter; E66.01 Morbid (severe) obesity due to excess calories; Z68.43 Body mass index [BMI] 50.0-59.9, adult; Z79.1 Long term (current) use of non-steroidal anti-inflammatories (NSAID); Z79.891 Long term (current) use of opiate analgesic; Z79.899 Other long term (current) drug therapy; Z98.890 Other specified postprocedural states; Z87.891 Personal history of nicotine dependence
CPT/HCPCS: 29881; 29876; A9270; J0690; J1100; J1200; J1885; J2250; J2405; J2704; J3010; J7120

== ENCOUNTER 2024-12-28 12:28 | Outpatient (CLI) | payer OTHER, SELFPAY ==
--- NOTE | ~2024-12-28 | XR_ITS ---
EXAM/ PROCEDURE: XR knee LT min 4V - 12/28/2024 12:31 CDT HISTORY: 44 years old Female with M25.562 - Pain in left knee COMPARISON: None available TECHNIQUE: Four view(s) FINDINGS/ IMPRESSION: There are no fractures or dislocations.Joint space narrowing, subchondral sclerosis, subchondral cyst formation and osteophyte formation, compatible with mild osteoarthritis. Reviewed, dictated and finalized at location A.
--- OUTSIDE RECORDS SUMMARY | 2024-12-28 13:16 | XMS_ITS | Clinical Summary ---
Author Organization [facility] [place] [address] [facility] Address [address] [place] [address] Care Team Providers Care Camera Person Name Role Phone No, Physician Primary Care Provider [phone] Allergies Active Allergy Reactions Criticality Noted Date [...] Team Description 10/06/2024 Telephone [facility] [address] [place] [address] Jazmyn Colbert NP from Last 3 Months Social History Tobacco Use Types Packs/Day Years Used Date Smoking Tobacco: Never Assessed Comments Unknown Sex and Gender Information Value Date Recorded Sex Assigned at Not on file Legal Sex Female 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 Gender Identity Not on file Sexual Orientation Not on file Obstetrics History Last Filed Vital Signs Vital Sign Reading Time Taken Comments Blood Pressure 128/88 06/16/2024 10:03 AM CLUSTER BORE OPERATOR Pulse 90 06/16/2024 10:03 AM CLUSTER BORE OPERATOR Temperature 37.2 C (98.9 F) 06/16/2024 10:03 AM CLUSTER BORE OPERATOR Respiratory Rate 19 06/16/2024 10:03 AM CLUSTER BORE OPERATOR Oxygen Saturation 100% 06/16/2024 10:03 AM CLUSTER BORE OPERATOR Inhaled Oxygen Concentration - - Weight 108.9 kg (240 lb) 06/16/2024 10:03 AM CLUSTER BORE OPERATOR Height 162.6 cm (5' 4) 06/16/2024 10:03 AM CLUSTER BORE OPERATOR Body Mass Index 41.2 06/16/2024 10:03 AM CLUSTER BORE OPERATOR Plan of Treatment Health Maintenance Due Date [...] patient's age to complete this topic Insurance [facility] PPO Care Teams Camera Person Relationship Specialty Start Date End Date No, Physician PCP - General 06/15/24
== END 2024-12-28 12:29 | disposition home or self-care (01) ==
LOC: ANHBWCIMG 12:30
PROVIDERS: Visit Provider Orthopaedic Surgery
DX: M25.562 Pain in left knee (principal)
CPT/HCPCS: 73564

== ENCOUNTER 2025-01-25 15:46 | Outpatient (CLI) | payer OTHER, SELFPAY ==
--- OUTSIDE RECORDS SUMMARY | 2025-01-25 18:29 | XMS_ITS | Clinical Summary ---
Author Organization [facility] [place] [address] [facility] Address [address] [place] [address] Care Team Providers Care Punch Machine Operator Name Role Phone No, Physician Primary Care Provider [phone] Allergies Active Allergy Reactions Criticality Noted Date [...] on file Legal Sex Female 6:19 PM BUSINESS SYSTEMS CONSULTANT Gender Identity Not on file Sexual Orientation Not on file Obstetrics History Last Filed Vital Signs Vital Sign Reading Time Taken Comments Blood Pressure 128/88 06/16/2024 10:03 AM BUSINESS SYSTEMS CONSULTANT Pulse 90 06/16/2024 10:03 AM BUSINESS SYSTEMS CONSULTANT Temperature 37.2 C (98.9 F) 06/16/2024 10:03 AM BUSINESS SYSTEMS CONSULTANT Respiratory Rate 19 06/16/2024 10:03 AM BUSINESS SYSTEMS CONSULTANT Oxygen Saturation 100% 06/16/2024 10:03 AM BUSINESS SYSTEMS CONSULTANT Inhaled Oxygen Concentration - - Weight 108.9 kg (240 lb) 06/16/2024 10:03 AM BUSINESS SYSTEMS CONSULTANT Height 162.6 cm (5' 4) 06/16/2024 10:03 AM BUSINESS SYSTEMS CONSULTANT Body Mass Index 41.2 06/16/2024 10:03 AM BUSINESS SYSTEMS CONSULTANT Plan of Treatment Health Maintenance Due Date [...] patient's age to complete this topic Insurance [facility] PPO Care Teams Punch Machine Operator Relationship Specialty Start Date End Date No, Physician PCP - General 06/15/24
[2025-01-25 18:51] LABS: Hematocrit 39.5 % (37.0-47.0); Hemoglobin 12.7 g/dL (12.0-15.0); Mean Corpuscular HGB Conc 32.2 g/dl (32-36); Mean Corpuscular Hemoglobin 29.1 pg (26-34); Mean Corpuscular Volume 90.6 fl (80-100); Platelet Count Result 318 k/mm3 (150-375); Red Blood Count 4.36 M/mm3 (4.2-5.4); White Blood Count 6.5 K/mm3 (4.5-10.0)
[2025-01-25 18:59] LABS: Free T4 Free Thyroxine 1.07 ng/dL (0.78-2.19)
[2025-01-25 19:21] LABS: Hemoglobin A1C 5.7 % (<5.7)
[2025-01-25 19:39] LABS: Alanine Aminotransferase 29 U/L (6-35); Albumin Level 4.2 g/dL (3.5-5.1); Alkaline Phosphatase 114 U/L (38-126); Anion Gap 55 mmol/L (4-12); Aspartate Amino Transferase 39 U/L (14-36); Bilirubin,Total 0.6 mg/dL (0.2-1.3); Blood Urea Nitrogen 12 mg/dL (7-17); Calcium 9.2 mg/dL (8.4-10.2); Carbon Dioxide 29 mmol/L (22-30); Chloride 103 mmol/L (98-107); Cholesterol 208 mg/dL (0-200); Estimated Glomerular Filt Rate > 60; Glucose 106 mg/dL (65-110); HDL Direct 39 mg/dL; Potassium 3.8 mmol/L (3.4-5.0); Sodium 187 mmol/L (137-145); Thyroid Stimulating Hormone 1.500 uIU/mL (0.465-4.680); Total Protein 7.9 g/dL (6.3-8.2); Triglycerides 299 mg/dL (<150); Vitamin B12 267.0 pg/mL (239-931)
== END 2025-01-25 15:47 | disposition home or self-care (01) ==
LOC: ANHBWCLAB 15:46
PROVIDERS: PCP Nurse Practitioner Adult Health; Visit Provider Nurse Practitioner Adult Health
DX: Z00.00 Encounter for general adult medical examination without abnormal findings (principal); E66.01 Morbid (severe) obesity due to excess calories; R53.83 Other fatigue; Z13.89 Encounter for screening for other disorder
CPT/HCPCS: 36415; 80053; 80061; 82306; 82607; 83036; 84439; 84443; 85027; 86376